=== PATIENT | male | born 2005 | race Hispanic/Latino ===

== ENCOUNTER 2023-11-24 18:36 | Emergency (ER) | payer SELFPAY ==
[2023-11-24] VITALS (15 sets, daily range): BP systolic 129–149; BP diastolic 77–96; BMI 30.6
--- NOTE | 2023-11-24 18:59 | ED.GENMED ---
History of Present Illness
General
Chief Complaint: Overdose Intentional
Source: patient and other (Friend)
Time Seen by Provider: 11/24/23 18:49
History of Present Illness
History of Present Illness:
18-year-old male with depression. On Celexa 20 mg tablets. Was at his mom's rate today. Became more depressed suicidal took anywhere from 10-20 Celexa tablets. These were what was left in the bottle. Also took a handful of Motrin. Denies
Tylenol ingestion or other ingestion. Feels minimally lightheaded at this time. No other specific medical complaints.
Past History
Past History
ED Past Medical History: Psychiatric (Depression)
ED Past Surgical History: Other (Myringotomy tubes)
Review of Systems
Review of Systems
All Other Systems: Not applicable
Constitutional: Reports no symptoms
Respiratory: Reports no symptoms
Cardiac: Reports no symptoms
ABD/GI: Reports no symptoms
Phy Exam
Physical Exam
Physical Exam:
GENERAL: Alert and oriented in no apparent distress
EYE: Orbits normal.
NECK: Supple, no significant adenopathy.
ENT: Pharynx without erythema
CARDIAC: Borderline tachycardic and regular no murmur
LUNGS: Clear breath sounds,normal
ABDOMEN: Soft, without focal tenderness or distention
NEUROLOGICAL: Alert and oriented , grossly non-focal
SKIN: Warm and dry, no rash or lesion, no discoloration, skin intact.
MUSCULOSKELETAL: No edema,no deformity.Good color
PSYCH: Normal and appropriate interaction.
Course
Orders/Labs/Results
Orders:
Orders
11/24/23 18:42
Crisis Consult Urgent
Reason for Consult: Suicide attempt
1:1 Observation - Suicide/ Violent Behavior As Directed
11/24/23 18:43
EKG [Electrocardiogram (*1)] Urgent
Reason for Study: Other
Other Reason for Exam: overdose
EKG- Treatment ONCE
Urine Drug Abuse Screen Urgent
Date Specimen was Collected: 11/24/23
Time Specimen was Collected: 18:43
11/24/23 18:56
Acetaminophen Urgent
Alcohol Urgent
CMP [Comprehensive Metabolic Panel] Urgent
Complete Blood Count/With Diff Urgent
Magnesium Urgent
Comment: ADD ON
Salicylate Urgent
11/24/23 18:58
Crisis Consult Urgent
Reason for Consult: depression/ suicide attempt
11/24/23 18:59
Cardiac Monitoring- Treatment ONCE
IV Insert/Care/Rem.- Treatment PRN
0.9% Sodium Chloride 1000 ml [Nss] 1,000 ml IV BOLUS
Pulse Ox/cont/shift [RESP] Stat
Quantity: 1
11/24/23 19:05
Add On- LAB Urgent
Tests Added?: magnesium
Abnormal Lab Results
11/24/23
18:56
Absolute Neuts (auto) 6.7 H 10^3/uL
(1.4-6.5)
Glucose 106 H mg/dl
(70-99)
ALT 66 H U/L
(0-50)
Salicylates < 1.0 L mg/dl
(2.0-20.0)
Acetaminophen < 10 L ug/ml
(10-30)
11/24/23 18:56
11/24/23 18:56
Vital Signs
Initial and Last Documented VS:
Initial Vital Signs
Temp Pulse Resp Pulse Ox
98.4 F 77 18 96
11/24/23 18:37 11/24/23 18:37 11/24/23 18:37 11/24/23 18:37
Last Documented Vital Signs
Temp Pulse Resp BP Pulse Ox
98.4 F 81 27 142/84 98
11/24/23 18:37 11/24/23 20:15 11/24/23 20:15 11/24/23 20:00 11/24/23 20:15
MDM/Problems Addressed
Differential Diagnosis Includes:
Multidrug overdose. NSAID and Celexa. Clinically stable. Workup in progress. No decontamination at this time. Supportive care. No QT issues at this time. Neurologically stable. No seizures or arrhythmias. If this was 2020 mg tablets this
was 400 mg likely not a serious amount at this time but does need observation
*Pulse Oximetry
Patient hypoxic: no
*EKG
Interpreted by ED Provider?: Yes
Interpretation: abnormal
Comparison EKG: no comparison EKG present
Heart Rate: 101
Rate: tachycardiac
Rhythm: sinus
[place]: normal axis
Interval: normal interval
QRS Pattern: normal QRS
Ischemia: non-specific ST changes
*Admission Liaison Interpretation
Rate: tachycardiac
Interpretation: abnormal
Heart Rate: 102
Rhythm: sinus
Update Note
Update Note:
2024... Discussed with poison control. 12 hours of observation. Has remained medically stable
ED Attending Note
-
Portions of this chart may have been created with voice recognition software.� Occasional wrong word or��sound alike� substitutions may have occurred due to the inherent limitations of voice recognition software.
Discharge Plan
Departure
Referrals:
Uyen Newton NP [Family Provider] -
Interventions
Interventions:
*Risk Screen - Suicide Last Done: 11/24/23 18:37
*General Assessment Last Done: 11/24/23 18:37
*Neglect/Abuse Screening Last Done: 11/24/23 18:37
ED- Fall Risk Assessment Last Done: 11/24/23 18:55
*ED COVID-19 Vaccine History Last Done: 11/24/23 20:20
ED- Cardiac Assessment Last Done: 11/24/23 18:55
ED- Neurological Assessment Last Done: 11/24/23 18:55
ED-Psychological Assessment Last Done: 11/24/23 18:54
ED- Pulmonary Assessment Last Done: 11/24/23 18:55
Discharge Date and Time
Print Language: IRISH
[2023-11-24] MEDS: NSS 1000 IV (19:02)
[2023-11-24 19:10] LABS: % Basophils 0.5 % (0-2); % Eosinophils 0.3 % (0-6); % Immature Granulocytes 0.3 % (0-0.5); % Lymphocytes 28.4 % (20.5-51.1); % Monocytes 4.9 % (1.7-9.3); % Neutrophils 65.6 % (42.2-75.2); Absolute Basophils 0.1 10^3/uL (0-0.2); Absolute Lymphocytes 2.9 10^3/uL (1.2-3.4); Absolute Monocytes 0.5 10^3/uL (0.1-0.6); Absolute Neutrophils 6.7 10^3/uL (1.4-6.5); Hematocrit 51.7 % (39.0-52.0); Hemoglobin 17.2 g/dL (13.0-18.0); Mean Corp Hgb Conc. 33.3 g/dL (33.0-37.0); Mean Corpuscular Hgb 28.6 pg (27.0-31.0); Mean Corpuscular Volume 85.9 fL (80.0-94.0); Mean Platelet Volume 9.3 fL (7.4-10.4); Nucleated Red Blood Cells % 0 % (-); Platelet Count 352 10^3/uL (130-400); Red Blood Cell Count 6.02 10^6/uL (4.70-6.10); White Blood Cell Count 10.2 10^3/uL (4.8-10.8)
[2023-11-24 19:31] LABS: ALT (SGPT) 66 U/L (0-50); AST (SGOT) 41 U/L (17-59); Acetaminophen < 10 ug/ml (10-30); Alkaline Phosphatase 71 U/L (38-126); Blood Urea Nitrogen 12 mg/dl (9-20); Calcium 10.2 mg/dl (8.4-10.2); Carbon Dioxide 27 mmol/L (22-30); Chloride 104 mmol/L (98-107); Estimated Creatinine Clearance 121 ml/min; Glucose 106 mg/dl (70-99); Potassium 4.2 mmol/L (3.5-5.1); Salicylate < 1.0 mg/dl (2.0-20.0); Sodium 140 mmol/L (135-145); Total Protein 8.1 g/dl (6.3-8.2); eGFR > 60.00
[2023-11-24 19:32] LABS: Alcohol None Detected
[2023-11-24 19:44] LABS: Magnesium 2.1 mg/dl (1.6-2.3)
--- NOTE | 2023-11-24 20:55 | PHANOTE ---
med rec note- patient suppose to be on Celexa 20mg daily but does not take this every day, patient last took as prescription about 3 days . med rec called [facility] and was told last filled 08/2022
--- NOTE | 2023-11-24 21:12 | ED TECH ---
This PCT started 1:1 observation at 2111.
[2023-11-24 22:39] LABS: Amphetamines Negative (Negative); Barbiturates Negative (Negative); Benzodiazepines Negative (Negative); Buprenorphine Negative (Negative); Cocaine Negative (Negative); Marijuana Negative (Negative); Methadone Negative (Negative); Methamphetamines Negative (Negative); Opiates Negative (Negative); Phencyclidine Negative (Negative); Tricyclic Antidepressants Negative (Negative)
[2023-11-25] VITALS (21 sets, daily range): BP systolic 111–144; BP diastolic 64–98
== END 2023-11-25 06:56 ==
LOC: EMR 18:36
PROVIDERS: Student in an Organized Health Care Education/Training Program; EMERGENCY PHYSICIAN Emergency Medicine; FAMILY PHYSICIAN Nurse Practitioner Family
DX: T43.222A Poisoning by selective serotonin reuptake inhibitors, intentional self-harm, initial encounter (principal); T39.312A Poisoning by propionic acid derivatives, intentional self-harm, initial encounter; R42 Dizziness and giddiness; F32.A Depression, unspecified
CPT/HCPCS: 99285; 96360; 80053; 80143; 80179; 80306; 82077; 83735; 85025; 93005

== ENCOUNTER 2024-11-13 16:40 | Emergency (ER) | payer OTHER, SELFPAY ==
[2024-11-13 16:43] VITALS: BP 124/75
--- NOTE | 2024-11-13 17:12 | ED.GENMED ---
History of Present Illness
General
Chief Complaint: Musculo-Skeletal Complaint
Source: patient
Time Seen by Provider: 11/13/24 16:48
History of Present Illness
History of Present Illness:
Note:
CHIEF COMPLAINT(S)
Ankle pain
HISTORY OF PRESENT ILLNESS
The patient is a 19-year-old male presenting with ankle pain following an incident where the patient was drinking and did a cartwheel. The pain began before the patient landed on the ankle noting he struck it against the wall and felt pain. The pain
is exacerbated by movement, particularly noted during an X-ray when the foot was extended. The pain is described as sharp and affects the full area of the ankle. No other injuries were sustained. Patient denies any history of previous injury.
Past History
Past History
ED Past Medical History: Psychiatric (Depression)
ED Past Surgical History: Other (Myringotomy tubes)
Social History
Tobacco: Non-smoker
Alcohol: Occasional
Drug: None
Personal: Single
Living: with family
Employment: Student
Review of Systems
Review of Systems
All Other Systems: ROS reviewed and negative except as documented in HPI and ROS
Phy Exam
Physical Exam
Physical Exam:
GENERAL: Alert , in no apparent distress
EYE: conjunctiva clear
Head: Normocephalic atraumatic
NECK: Supple,
ENT: mmm.
LUNGS: no acute respiratory distress
NEUROLOGICAL: Alert and oriented
SKIN: Warm and dry, skin intact.
MUSCULOSKELETAL: Left lower extremity: No obvious deformity, mild soft tissue swelling, no breaks in the skin. No focal bony tenderness. No tenderness at the base of the fifth metatarsal. Easily palpable pedal and tibial pulse. Cap refill less
than 2 seconds.
PSYCH: Normal and appropriate interaction.
Scores
Heart Failure Risk
Heart Failure Risk Score: Not Applicable
Heart Score for Chest Pain Patients
STEMI patient?: Not applicable
Withdrawal Assessment of Alcohol
Withdrawal Assessment Completed?: Not applicable
Course
Orders/Labs/Results
Orders:
Orders
11/13/24 16:47
CR Ankle - Left Min 3 Views Urgent
Reason For Exam: injury
Vital Signs
Initial and Last Documented VS:
Initial Vital Signs
Temp Pulse Resp BP Pulse Ox
98.4 F 88 16 124/75 97
11/13/24 16:43 11/13/24 16:43 11/13/24 16:43 11/13/24 16:43 11/13/24 16:43
Last Documented Vital Signs
Temp Pulse Resp BP Pulse Ox
98.4 F 88 16 124/75 97
11/13/24 16:43 11/13/24 16:43 11/13/24 16:43 11/13/24 16:43 11/13/24 17:13
MDM/Problems Addressed
Differential Diagnosis Includes:
- Contusion
- sprain
- Fracture
- Calcaneal tendon injury
MDM/Problems Addressed:
19-year-old male presenting to the ER for evaluation of right ankle pain following injury sustained last. X-ray was ordered from triage shows no acute fracture. Motrin/Tylenol as needed for pain. Offered crutches however patient declines.
Information for orthopedics provided. Stable for discharge home.
*Radiology
Radiology exam reviewed: preliminary read by ED provider (No acute fx)
*Pulse Oximetry
SaO2: 97
Oxygen Mode of Delivery: Room air
Patient hypoxic: no
*Critical Care Note
Total Time (30-74mins, 75-104mins- exclusive of procedures): Not Applicable
ED Attending Note
-
Portions of this chart may have been created with voice recognition software.� Occasional wrong word or��sound alike� substitutions may have occurred due to the inherent limitations of voice recognition software.
Discharge Plan
Departure
Patient Disposition: Home (Routine Discharge)
Date of Disposition: 11/13/24
Time of Disposition: 17:12
Patient with high blood pressure during this ER visit?: No
Discharge Problem:
Ankle pain, left
Instructions: Contusion (DC)
Prescriptions:
No Action
citalopram [Celexa] 20 mg Tablet
20 mg PO DAILY
Patient Comments:
[facility]
Referrals:
Uyen Newton, LUZ [Family Provider, Family Practice]
Nu Nicole I., DO [Active, Orthopedics]
Interventions
Interventions:
*Risk Screen - Suicide Last Done: 11/13/24 16:43
*General Assessment Last Done: 11/13/24 17:12
*Neglect/Abuse Screening Last Done: 11/13/24 16:43
*ED- Fall Risk Assessment Last Done: 11/13/24 17:12
*ED COVID-19 Vaccine History Last Done: 11/13/24 17:12
*Nursing Disposition Last Done: 11/13/24 17:18
ED-Musculoskeletal Assessment Last Done: 11/13/24 17:11
Discharge Date and Time
Print Language: SAMI
== END 2024-11-13 17:18 | disposition home or self-care (01) ==
LOC: EMR 16:40
PROVIDERS: EMERGENCY PHYSICIAN Emergency Medicine; FAMILY PHYSICIAN Nurse Practitioner Family
DX: M25.572 Pain in left ankle and joints of left foot (principal)
CPT/HCPCS: 99283; 73610